=== PATIENT | female | born 1985 | race Two or more races ===

== ENCOUNTER 2018-04-22 17:43 | Outpatient (CLI) | payer OTHER ==
[~2018-04-22 17:43] MED LIST: IRON1TAB4 PO; NAPROXEN SODIU550 MG PO; TRAMADOL HCL-AP1 TAB PO
== END 2018-04-22 20:00 | disposition home or self-care (01) ==
LOC: OBS/DEL 17:43
DX: O47.1 False labor at or after 37 completed weeks of gestation (principal); O34.211 Maternal care for low transverse scar from previous cesarean delivery; Z34.83 Encounter for supervision of other normal pregnancy, third trimester

== ENCOUNTER 2018-04-23 19:59 | Inpatient (IN) | payer OTHER ==
[~2018-04-23] VITALS: Ht 165.1 cm; Wt 4.5 kg
[2018-05-01] MEDS ORDERED: PRENATAL PLUS1 EAC2 PO (07:03)
== END 2018-05-04 16:39 | DRG 766 ==
LOC: OB/GYN 05-01 06:17 → O/R 05-01 06:17 → OB/GYN 05-01 16:54
PROVIDERS: Obstetrics & Gynecology
PROC: 0UB70ZZ Excision of Bilateral Fallopian Tubes, Open Approach (ICD-10-PCS; 2018-05-01)
PROC: 4A1HXCZ Monitoring of Products of Conception, Cardiac Rate, External Approach (ICD-10-PCS; 2018-05-01)
PROC: 4A033R1 Measurement of Arterial Saturation, Peripheral, Percutaneous Approach (ICD-10-PCS; 2018-05-01)
PROC: 10D00Z1 Extraction of Products of Conception, Low, Open Approach (ICD-10-PCS; principal; 2018-05-01 05:30)
DX: O34.211 Maternal care for low transverse scar from previous cesarean delivery (principal); O75.82 Onset (spontaneous) of labor after 37 completed weeks of gestation but before 39 completed weeks gestation, with delivery by (planned) cesarean section; Z3A.39 39 weeks gestation of pregnancy; Z37.0 Single live birth; Z30.2 Encounter for sterilization